=== PATIENT | male | born 1990 | race Caucasian/White ===

== ENCOUNTER 2018-04-22 16:48 | Emergency (ER) | payer SELFPAY | END 2018-04-22 18:39 | disposition home or self-care (01) | LOC: M ED 16:48 | DX: M54.41 Lumbago with sciatica, right side (principal); F17.210 Nicotine dependence, cigarettes, uncomplicated | CPT/HCPCS: 99283 ==

== ENCOUNTER 2018-07-01 15:00 | Emergency (ER) | payer SELFPAY ==
[2018-07-01] MEDS: PROPARACAINE 0.5% OPHTH SOL 15ML XX (15:57)
[2018-07-01] MEDS: ADACEL/BOOSTRIX VACCINE (DIPHTH/PERTUSS/ACELL/TETANUS)0.5ML SYR (90715) IM (16:21)
== END 2018-07-01 16:49 | disposition home or self-care (01) ==
LOC: M ED 15:00
DX: S05.01XA Injury of conjunctiva and corneal abrasion without foreign body, right eye, initial encounter (principal); X58.XXXA Exposure to other specified factors, initial encounter; Y92.89 Other specified places as the place of occurrence of the external cause; M54.9 Dorsalgia, unspecified; F17.210 Nicotine dependence, cigarettes, uncomplicated
CPT/HCPCS: 90715

== ENCOUNTER 2020-04-12 23:38 | Emergency (ER) | payer BC, SELFPAY ==
[~2020-04-12] VITALS: Ht 175.3 cm; Wt 93.6 kg
[~2020-04-12 23:38] MED LIST: CYCL-707 PO; IBUP-1022 PO; OCUF0.25 OD; ROBA500T PO
[2020-04-12] MEDS ORDERED: CYCL-707 (23:44)
[2020-04-12] MEDS ORDERED: METH4PACK (23:44)
[2020-04-13] MEDS ORDERED: KETOROLAC 60MG 2ML VIAL IM ONE (00:45)
[2020-04-13] MEDS ORDERED: GABAPENTIN 300 MG CAP PO ONE (00:45)
[2020-04-13] MEDS ORDERED: NEUR300C PO (01:23)
[2020-04-13 01:30] VITALS: BP 133/77
== END 2020-04-13 01:30 | disposition home or self-care (01) ==
LOC: M ED 23:38
DX: M54.42 Lumbago with sciatica, left side (principal); Z79.899 Other long term (current) drug therapy
CPT/HCPCS: 99283; J1885

== ENCOUNTER 2020-11-20 08:39 | Inpatient (IN) | payer BC ==
[~2020-11-20] VITALS: Ht 172.7 cm; Wt 88.2 kg
[~2020-11-20 08:39] MED LIST changes: +CYCL-707; +METH4PACK; +NEUR300C PO
--- OUTSIDE RECORDS SUMMARY | 2020-11-20 08:42 | CCD ---
Author Author [facility] Organization [facility] Address Unknown Phone Unavailable Care Team Providers Care Pipe Stem Aligner Name Role Phone MCELHERAN, SRINI PA Unavailable Unavailable MCELHERAN, SRINI PA Unavailable Unavailable MCELHERAN, SRINI PA Unavailable Unavailable MCELHERAN, SRINI PA Unavailable Unavailable MCELHERAN, SRINI PA Unavailable Unavailable MCELHERAN, SRINI PA Unavailable Unavailable MCELHERAN, SRINI PA Unavailable Unavailable MCELHERAN, SRINI PA Unavailable Unavailable MCELHERAN, SRINI PA Unavailable Unavailable MCELHERAN, SRINI PA Unavailable Unavailable MCELHERAN, SRINI PA Unavailable Unavailable MCELHERAN, SRINI PA Unavailable Unavailable MCELHERAN, SRINI PA Unavailable Unavailable MCELHERAN, SRINI PA Unavailable Unavailable MCELHERAN, SRINI PA Unavailable Unavailable MCELHERAN, SRINI PA Unavailable Unavailable MCELAN, SRINI PA Unavailable Unavailable MCELHERAN, SRINI PA Unavailable Unavailable MCELAN, SRINI PA Unavailable Unavailable MCELHERAN, SRINI PA Unavailable Unavailable MCELHERAN, SRINI PA Unavailable Unavailable MCELHERAN, SRINI PA Unavailable Unavailable MCELHERAN, SRINI PA Unavailable Unavailable MCELHERAN, SRINI PA Unavailable Unavailable MCELHERAN, SRINI PA Unavailable Unavailable MCELHERAN, SRINI PA Unavailable Unavailable MCELHERAN, SRINI PA Unavailable Unavailable MCELHERAN, SRINI PA Unavailable Unavailable Heath, L Erik MD Unavailable Unavailable Heath, L Erik MD Unavailable Unavailable Heath, L Erik MD Unavailable Unavailable Heath, L Erik MD Unavailable Unavailable Heath, L Erik MD Unavailable Unavailable Heath, L Erik MD Unavailable Unavailable Heath, L Erik MD Unavailable Unavailable Heath, L Erik MD Unavailable Unavailable Heath, L Erik MD Unavailable Unavailable Heath, L Erik MD Unavailable Unavailable Heath, L Erik MD Unavailable Unavailable Heath, L Erik MD Unavailable Unavailable Heath, L Erik MD Unavailable Unavailable Heath, L Erik MD Unavailable Unavailable Heath, L Erik MD Unavailable Unavailable Heath, L Erik MD Unavailable Unavailable Heath, L Erik MD Unavailable Unavailable Heath, L Erik MD Unavailable Unavailable Heath, L Erik MD Unavailable Unavailable Heath, L Erik MD Unavailable Unavailable Heath, L Erik MD Unavailable Unavailable Heath, L Erik MD Unavailable Unavailable Heath, L Erik MD Unavailable Unavailable Heath, L Erik MD Unavailable Unavailable Heath, L Erik MD Unavailable Unavailable Heath, L Erik MD Unavailable Unavailable Heath, L Erik MD Unavailable Unavailable Heath, L Erik MD Unavailable Unavailable Heath, L Erik MD Unavailable Unavailable Heath, L Erik MD Unavailable Unavailable Heath, L Erik MD Unavailable Unavailable Heath, L Erik MD Unavailable Unavailable Heath, L Erik MD Unavailable Unavailable Heath, L Erik MD Unavailable Unavailable Heath, L Erik MD Unavailable Unavailable Heath, L Erik MD Unavailable Unavailable Heath, L Erik MD Unavailable Unavailable Heath, L Erik MD Unavailable Unavailable Heath, L Erik MD Unavailable Unavailable Heath, L Erik MD Unavailable Unavailable Heath, L Erik MD Unavailable Unavailable Heath, L Erik MD Unavailable Unavailable Heath, L Erik MD Unavailable Unavailable Heath, L Erik MD Unavailable Unavailable Heath, L Erik MD Unavailable Unavailable Heath, L Erik MD Unavailable Unavailable Heath, L Erik MD Unavailable Unavailable Re-disclosure Warning The records that you are about to access may contain information from federally-assisted alcohol or drug abuse programs. If such information is present, then the following federally mandated warning applies: This information has been disclosed to you from records protected by federal confidentiality rules (42 CFR part 2). The federal rules prohibit you from making any further disclosure of this information unless further disclosure is expressly permitted by the written consent of the person to whom it pertains or as otherwise permitted by 42 CFR part 2. A general authorization for the release of medical or other information is NOT sufficient for this purpose. The Federal rules restrict any use of the information to criminally investigate or prosecute any alcohol or drug abuse patient.The records that you are about to access may contain highly sensitive health information, the redisclosure of which is protected by Article 27-F of the [facility] Public Health law. If you continue you may have access to information: Regarding HIV / AIDS; Provided by facilities licensed or operated by the [facility] Office of Mental Health; or Provided by the [facility] Office for People With Developmental Disabilities. If such information is present, then the following [facility] mandated warning applies: This information has been disclosed to you from confidential records which are protected by state law. State law prohibits you from making any further disclosure of this information without the specific written consent of the person to whom it pertains, or as otherwise permitted by law. Any unauthorized further disclosure in violation of state law may result in a fine or fci sentence or both. A general authorization for the release of medical or other information is NOT sufficient authorization for further disc losure. Encounters Encounter Providers Location Date Indications Data Source(s ) Outpatient Attender: Erik Heath MD Physical Therapy 05/13/2020 0 2:00:00 PM EDT [facility] ([facility] ) Outpatient Attender: SRINI PEREZ Physical Therapy 04/27/2020 02:30:00 PM EDT [facility] ([facility] ) Medications Medication Brand Name Start Date Product Form Dose Route Admi nistrative Instructions Pharmacy Instructions Status Indications Reaction Description Data Source(s) gabapentin 300 MG Oral Capsule Gabapentin 05/13/2020 12:00:00 AM EDT ORAL active [facility] ([facility]) No Active Medications 05/13/2020 12:00:00 AM EDT completed [facility] ([facility] ) 875-125 mg 09/20/2019 12:00:00 AM EST tablet 20 TAKE ONE TABLET BY MOUTH TWICE A DAY FOR 10 DAYS TAKE ONE TABLET BY MOUTH TWICE A DAY FOR 10 DAYS SOLD: 09/20/2019 [facility] Insurance Providers Payer name Policy type / Coverage type Policy ID Covered republican ID Covered republican's relationship to ansari Policy Ansari Plan Information [employer] [place] P[place]/307 [id number] SP [id number] [employer] [place]/307 [id number] SP [id number] SELF PAY ONLY [id number] SP [id number] SELF PAY UNAVAILABLE SP UNAVAILA BLE MEDICAID [id number] SP [id number] Surgeries/Procedures Procedure Description Date Indications Data Source(s) THERAPEUTIC PX 1/> AREAS EACH 15 MIN EXERCISES 12:00:00 AM EDT [facility] ([facility] ) MANUAL THERAPY TQS 1/> REGIONS EACH 15 MINUTES 12:00:00 AM EDT [facility] ([facility] ) THERAPEUTIC PX 1/> AREAS EACH 15 MIN EXERCISES 12:00:00 AM EDT [facility] ([facility] ) MANUAL THERAPY TQS 1/> REGIONS EACH 15 MINUTES 12:00:00 AM EDT [facility] ([facility] ) THERAPEUTIC PX 1/> AREAS EACH 15 MIN EXERCISES 12:00:00 AM EDT [facility] ([facility] ) MANUAL THERAPY TQS 1/> REGIONS EACH 15 MINUTES 12:00:00 AM EDT [facility] ([facility] ) Physical Therapy Eval - Low Complexity 05/11/2020 12:0 0:00 AM EDT [facility] ([facility] ) X-Ray Spine Lumbosacral Complete Inc Bending Views Min Of 6 04/27/2020 12:00:00 AM EDT [facility] ([facility] ) Vital Signs ID Date Data Source UNK Name Value Range Interpretation Code Description Data Source(s) Body mass index (BMI) [Ratio] 29.6 kg/m2 29.6 k g/m2 [facility] ([facility] ) Body weight 206.00 [lb_av] 206.00 [lb_av] [facility] T ([facility] ) Body height 70 [in_i] 70 [in_i] [facility] ([facility] ) 5'10" Body mass index (BMI) [Ratio] 29.6 kg/m2 29.6 k g/m2 [facility] ([facility] ) Body weight 206.00 [lb_av] 206.00 [lb_av] [facility] T ([facility] ) Body height 70 [in_i] 70 [in_i] [facility] ([facility] ) 5'10" Body temperature 96.8 [degF] 96.8 [degF] [facility] ([facility] )
[2020-11-20] MEDS ORDERED: IBUP200C90 PO (08:50)
--- OUTSIDE RECORDS SUMMARY | 2020-11-20 09:28 | CCD ---
Author Author [facility] Organization [facility] Address Unknown Phone Unavailable Care Team Providers Care Fish Conservationist Name Role Phone MCELHERAN, SRINI PA Unavailable [...] Unavailable Unavailable MCELHERAN, SRINI PA Unavailable Unavailable Sobeida Heath MD Unavailable Unavailable Heath, L Erik MD [...] Unavailable Heath, L Erik MD Unavailable Unavailable Haeth, L Erik MD Unavailable Unavailable Heath, L [...] is protected by Article 27-F of the [facility] Public Health law. If you continue you may have access to information: Regarding HIV / AIDS; Provided by facilities licensed or operated by the [facility] Office of Mental Health; or Provided by the [facility] Office for People With Developmental Disabilities. If such information is present, then the following [facility] mandated warning applies: This information has been [...] law may result in a fine or assisted sentence or both. A general authorization for the release of medical or other information is NOT sufficient authorization for further disc losure. Encounters Encounter Providers Location Date Indications Data Source(s ) Outpatient Attender: Erik Heath MD Physical Therapy 05/13/2020 0 2:00:00 PM EDT [facility] ([facility] ) Outpatient Attender: SRINI PEREZ Physical Therapy 04/27/2020 02:30:00 PM EDT [facility] ([facility]) Medications Medication Brand Name Start Date Product Form Dose Route Admi nistrative Instructions Pharmacy Instructions Status Indications Reaction Description Data Source(s) gabapentin 300 MG Oral Capsule Gabapentin 05/13/2020 12:00:00 AM EDT ORAL active [facility] ([facility]) No Active Medications 05/13/2020 12:00:00 AM EDT completed [facility] ([facility] ) 875-125 mg 09/20/2019 12:00:00 AM EST tablet 20 TAKE ONE TABLET BY MOUTH TWICE A DAY FOR 10 DAYS TAKE ONE TABLET BY MOUTH TWICE A DAY FOR 10 DAYS SOLD: 09/20/2019 [facility] Insurance Providers Payer name Policy type / Coverage type Policy ID Covered libertarian ID Covered libertarian's relationship to ansari Policy Ansari Plan Information [employer] [place] P[place]/307 [id number] SP [id number] [employer] [place] P[place] 302/307 [id number] SP [id number] SELF PAY ONLY [id number] SP [id number] SELF PAY UNAVAILABLE SP UNAVAILA BLE MEDICAID [id number] SP [id number] Surgeries/Procedures Procedure Description Date Indications Data Source(s) THERAPEUTIC PX 1/> AREAS EACH 15 MIN EXERCISES 12:00:00 AM EDT [facility] ([facility] ) MANUAL THERAPY TQS 1/> REGIONS EACH 15 MINUTES 12:00:00 AM EDT [facility] ([facility] ) THERAPEUTIC PX 1/> AREAS EACH 15 MIN EXERCISES 12:00:00 AM EDT [facility] ([facility] ) MANUAL THERAPY TQS 1/> REGIONS EACH 15 MINUTES 12:00:00 AM EDT [facility] ([facility] ) THERAPEUTIC PX 1/> AREAS EACH 15 MIN EXERCISES 12:00:00 AM EDT [facility] ([facility] ) MANUAL THERAPY TQS 1/> REGIONS EACH 15 MINUTES 12:00:00 AM EDT [facility] ([facility] ) Physical Therapy Eval - Low Complexity 05/11/2020 12:0 0:00 AM EDT [facility] ([facility] ) X-Ray Spine Lumbosacral Complete Inc Bending Views Min Of 6 04/27/2020 12:00:00 AM EDT [facility] ([facility] ) Vital Signs ID Date Data Source UNK Name Value Range Interpretation Code Description Data Source(s) Body mass index (BMI) [Ratio] 29.6 kg/m2 29.6 k g/m2 [facility] ([facility] ) Body weight 206.00 [lb_av] 206.00 [lb_av] [facility] T ([facility] ) Body height 70 [in_i] 70 [in_i] [facility] ([facility] ) 5'10" Body mass index (BMI) [Ratio] 29.6 kg/m2 29.6 k g/m2 [facility] ([facility] ) Body weight 206.00 [lb_av] 206.00 [lb_av] [facility] T ([facility] ) Body height 70 [in_i] 70 [in_i] [facility] ([facility] ) 5'10" Body temperature 96.8 [degF] 96.8 [degF] [facility] ([facility] )
[2020-11-20] MEDS ORDERED: KETOROLAC 30 MG/ML 1ML VIAL IV ONE (09:30)
[2020-11-20] MEDS ORDERED: CYCLOBENZAPRINE 5MG TABLET PO ONE (09:30)
[2020-11-20] MEDS ORDERED: NORCO, ANEXSIA 5/325MG TABLET (HYDROcodone/ACETAMINOPHEN) PO ONE (10:45)
[2020-11-20] MEDS ORDERED: CYCL5TAB PO (11:36)
[2020-11-20] MEDS ORDERED: HYDR-4517 PO (11:36)
[2020-11-20] MEDS ORDERED: MORPHINE 2 MG/ML 1ML VIAL (J2270) SC ONE (12:45)
--- NOTE | 2020-11-20 13:09 | REP ---
INDICATION: radicular pain. COMPARISON: Comparison MRI lumbar spine study 09 May 2020. This prior study showed a left-sided disc protrusion at L5-S1.. TECHNIQUE: Helical scanning is acquired and 4 mm axial images are re-formatted. Coronal and sagittal MPR images are provided. FINDINGS: There is straightening of the normal lumbar lordosis. Lumbar vertebral body heights are preserved. Alignment is normal. There is a Schmorl's node at the superior endplate of L3 on the left unchanged from the comparison MRI study. There is degenerative narrowing of the L5-S1 disc also unchanged. Disc spaces are otherwise preserved. No malalignment is seen. There is no evidence of spondylolysis or spondylolisthesis. There is evidence of a moderate to large sized left paracentral focal disc protrusion at L5-S1 producing thecal sac compression. This appears more prominent than on the MR study from May 09, 2020. There is evidence of compression of the left S1 nerve root. As seen previously, there is caudal extension of the disc protrusion. There is mild facet hypertrophy bilaterally at L5-S1. No bony foraminal encroachment. At L4-5, there is no evidence of disc protrusion. No spinal stenosis or foraminal narrowing is seen. The L3-4 and L2-3 and L1-2 discs remain unremarkable. IMPRESSION: There is evidence of a fairly large left posterior paracentral disc protrusion at L5-S1 with thecal sac compression. This appears to be larger than it was at the time of the MR study from May 09, 2020. <Electronically signed by Alfredo Pickett > 11/20/20 [id number]
[2020-11-20] MEDS ORDERED: dexameTHASONE 20MG/5ML VIAL (J1100 PER 1MG) IV ONE (13:30)
[2020-11-20 14:04] LABS: BASO % 0.5 % (0.0-1.0); EOS # 0.2 10^3/uL (0.0-0.5); EOS % 2.7 % (0.0-3.0); HEMATOCRIT 45.8 % (42.0-52.0); HEMOGLOBIN 15.1 g/dl (13.5-17.5); LYMPH # 2.9 10^3/uL (1.5-5.0); LYMPH % 37.8 % (24.0-44.0); MEAN CORPUSCULAR HEMOGLOBIN 28.2 pg (27.0-33.0); MEAN CORPUSCULAR VOLUME 85.6 fl (80.0-96.0); MONO # 0.7 10^3/uL (0.0-0.8); MONO % 8.6 % (0.0-5.0); NEUTROPHILS # 3.9 10^3/uL (1.5-8.5); NEUTROPHILS % 50.3 % (36.0-66.0); PLATELET COUNT, AUTOMATED 326 10^3/uL (150-450); RED BLOOD COUNT 5.35 10^6/uL (4.30-6.10); WHITE BLOOD COUNT 7.8 10^3/uL (4.0-10.0)
[2020-11-20 14:26] LABS: ALBUMIN 3.8 GM/DL (3.2-5.2); ALT/SGPT 36 U/L (12-78); BILIRUBIN,TOTAL 0.4 MG/DL (0.2-1.0); BLOOD UREA NITROGEN 10 MG/DL (7-18); CALCIUM LEVEL 9.2 MG/DL (8.5-10.1); CARBON DIOXIDE LEVEL 28 MEQ/L (21-32); CHLORIDE LEVEL 108 MEQ/L (98-107); CREATININE FOR GFR 0.82 MG/DL (0.70-1.30); GLOMERULAR FILTRATION RATE > 60.0 (>60); GLUCOSE, FASTING 85 MG/DL (70-100); MAGNESIUM LEVEL 2.2 MG/DL (1.8-2.4); SODIUM LEVEL 140 MEQ/L (136-145); TOTAL PROTEIN 7.1 GM/DL (6.4-8.2)
[2020-11-20] MEDS ORDERED: MOM 30ML SUSPENSION UDC PO PRN (14:30)
[2020-11-20] MEDS ORDERED: ACETAMINOPHEN TAB 650MG DOSE (2X325MG) PO PRN (14:30)
[2020-11-20] MEDS ORDERED: IBUP-1720 PO (14:32)
[2020-11-20 14:33] LABS: RSV AMPLIFICATION NEGATIVE (NEGATIVE)
--- OUTSIDE RECORDS SUMMARY | 2020-11-20 14:37 | CCD ---
Author Author [facility] Organization [facility] Address Unknown Phone Unavailable Care Team Providers Care Administrative Support Assoc Name Role Phone MCELHERAN, SRINI PA Unavailable [...] is protected by Article 27-F of the [facility] Public Health law. If you continue you may have access to information: Regarding HIV / AIDS; Provided by facilities licensed or operated by the [facility] Office of Mental Health; or Provided by the [facility] Office for People With Developmental Disabilities. If such information is present, then the following [facility] mandated warning applies: This information has been [...] law may result in a fine or chcf sentence or both. A general authorization for the release of medical or other information is NOT sufficient authorization for further disc losure. Encounters Encounter Providers Location Date Indications Data Source(s ) Outpatient Attender: Erik Heath MD Physical Therapy 05/13/2020 0 2:00:00 PM EDT [facility] ([facility] ) Outpatient Attender: SRINI PEREZ Physical Therapy 04/27/2020 02:30:00 PM EDT [facility] ([facility] ) Medications Medication Brand Name Start Date Product Form Dose Route Admi nistrative Instructions Pharmacy Instructions Status Indications Reaction Description Data Source(s) gabapentin 300 MG Oral Capsule Gabapentin 05/13/2020 12:00:00 AM EDT ORAL active [facility] ([facility]) No Active Medications 05/13/2020 12:00:00 AM EDT completed [facility] ([facility] ) 875-125 mg 09/20/2019 12:00:00 AM EST tablet 20 TAKE ONE TABLET BY MOUTH TWICE A DAY FOR 10 DAYS TAKE ONE TABLET BY MOUTH TWICE A DAY FOR 10 DAYS SOLD: 09/20/2019 [facility] Insurance Providers Payer name Policy type / Coverage type Policy ID Covered alliance party ID Covered alliance party's relationship to ansari Policy Ansari Plan Information [facility] [facility] [place] [id number] SP [id number] [employer] [place] PPO 302/307 [id number] SP [id number] [employer] PPO 302/307 [id number] SP [id number] [place] PPO 302/307 [id number] SP [id number] SELF PAY ONLY [id number] SP [id number] SELF PAY UNAVAILABLE SP UNAVAILA BLE MEDICAID [id number] SP [id number] Surgeries/Procedures Procedure Description Date Indications Data Source(s) THERAPEUTIC PX 1/> AREAS EACH 15 MIN EXERCISES 12:00:00 AM EDT [facility] ([facility] ) MANUAL THERAPY TQS 1/> REGIONS EACH 15 MINUTES 12:00:00 AM EDT [facility] ([facility] ) THERAPEUTIC PX 1/> AREAS EACH 15 MIN EXERCISES 12:00:00 AM EDT [facility] ([facility] ) MANUAL THERAPY TQS 1/> REGIONS EACH 15 MINUTES 12:00:00 AM EDT [facility] ([facility] ) THERAPEUTIC PX 1/> AREAS EACH 15 MIN EXERCISES 12:00:00 AM EDT [facility] ([facility] ) MANUAL THERAPY TQS 1/> REGIONS EACH 15 MINUTES 12:00:00 AM EDT [facility] ([facility] ) Physical Therapy Eval - Low Complexity 05/11/2020 12:0 0:00 AM EDT [facility] ([facility] ) X-Ray Spine Lumbosacral Complete Inc Bending Views Min Of 6 04/27/2020 12:00:00 AM EDT [facility] ([facility] ) Vital Signs ID Date Data Source UNK Name Value Range Interpretation Code Description Data Source(s) Body mass index (BMI) [Ratio] 29.6 kg/m2 29.6 k g/m2 [facility] ([facility] ) Body weight 206.00 [lb_av] 206.00 [lb_av] [facility] T ([facility] ) Body height 70 [in_i] 70 [in_i] [facility] ([facility] ) 5'10" Body mass index (BMI) [Ratio] 29.6 kg/m2 29.6 k g/m2 [facility] ([facility] ) Body weight 206.00 [lb_av] 206.00 [lb_av] CAT Morales ([facility] ) Body height 70 [in_i] 70 [in_i] [facility] ([facility] ) 5'10" Body temperature 96.8 [degF] 96.8 [degF] [facility] ([facility] )
--- NOTE | 2020-11-20 15:13 | HPEPDOC ---
[facility] Medical History & Physical Date of Admission Nov 20, 2020 Date of Service: Nov 20, 2020 History and Physical Chief complaint: Who presented to the ER with back pain History of present illness: Patient is a 30-year-old male who presented to the hospital with compl aints of lower back pain. Notes that the pain started about 2 days ago. He denies any recent history of overexertion or trauma. Patient reports the pain is occurring in his lower back radiating down his left leg. Patient denies any weakness of his legs or any loss of sensation. Reports the pain as a 10/10, unchanged with any medications received in the ER. Patient denies any alleviating or aggravating factors. Patient denies any loss of control of his bowel or bladder Patient denies any chest pain, shortness of breath, palpitations, nausea, vomiting, abdominal pain, diarrhea, or urinary discomfort. Past Medical History: Chronic back pain / Sciatica 2/2 herniated disks Past Surgical History: Colonoscopy Allergies: See below Medications: See below Family History: - No history of malignancies Social History: - Denies the use of illicit drugs; Social EtoH use; Smoker for 12 years at 2 ppd - Denies recent travel or sick contacts - Lives with mother / father - Occupation; [employer] Review of Systems: 10 point review of systems complete, all negative otherwise stated in HPI Physical exam: - Vitals: BP [132/65], HR [64], RR [16], Sat [99%RA], Temp [97.8F] - General: Lying in bed, Reporting back pain, Speaking in full sentences, AAOx3 - HEENT: NC, AT, PERRLA - CVS: RRR, +S1S2 - Lungs: Fair air entry bilaterally, No appreciable wheezing / rales / rhonchi - Abdomen: Soft, Non-distended, Non-tender - Extremities: No lower extremity edema, No calf tenderness - Neuro: 5/5 strength at upper / lower extremities bilaterally, no sensory deficits noted - Skin: No visible rashes Labs: See below Imaging: CT L spine 11/20: There is evidence of a fairly large left posterior paracentral disc protrusion at L5-S1 with thecal sac compression. This appears to be larger than it was at the time of the MR study from May 09, 2020. EKG: See below Assessment and Plan: Acute on Chronic back pain - likely 2/2 sciatica 2/2 herniated disks - Patient presented to the ER with back pain for 2 days - progressive - No loss of control of bowel / bladder - Physical without any focal neurologic deficits - Labs noted - Imaging noted above - Will get MRI - Will control pain with Morphine - Will consult Orthopedic surgery DVT prophylaxis - Will start TEDs/Sequentials Vital Signs Vital Signs Date Time Temp Pulse Resp B/P (MAP) Pulse Ox O2 Delivery O2 Flow Rate FiO2 11/20/20 13:13 18 Room Air 11/20/20 12:50 98 11/20/20 11:19 84 132/78 11/20/20 10:23 98.7 Laboratory Data Labs 24H Laboratory Tests 2 11/20/20 13:47: Coronavirus (COVID-19)(PCR) NEGATIVE, Influenza Type A (RT-PCR) NEGATIVE, Influenza Type B (RT-PCR) NEGATIVE, Respiratory Syncytial Virus (PCR) NEGATIVE 11/20/20 13:52: Immature Granulocyte % (Auto) 0.1, Neutrophils (%) (Auto) 50.3, Lymphocytes (%) (Auto) 37.8, Monocytes (%) (Auto) 8.6H, Eosinophils (%) (Auto) 2.7, Basophils (%) (Auto) 0.5, Neutrophils # (Auto) 3.9, Lymphocytes # (Auto) 2.9, Monocytes # (Auto) 0.7, Eosinophils # (Auto) 0.2, Basophils # (Auto) 0.0, Nucleated Red Blood Cells % (auto) 0.0, Anion Gap 4L, Glomerular Filtration Rate > 60.0, Calcium Level 9.2, Magnesium Level 2.2, Total Bilirubin 0.4, Aspartate Amino Transf (AST/SGOT) 20, Alanine Aminotransferase (ALT/SGPT) 36, Alkaline Phosphatase 61, Total Protein 7.1, Albumin 3.8, Albumin/Globulin Ratio 1.2 CBC/BMP Laboratory Tests 11/20/20 13:52 Home Medications Scheduled PRN Cyclobenzaprine HCl (Cyclobenzaprine HCl) 5 Mg Tablet, 5 MG PO TID PRN for BACK PAIN Hydrocodone/Acetaminophen (Hydrocodone-Acetamin 10-325 mg) 1 Each Tablet, 1 TAB PO QIDP PRN for pain Ibuprofen (Ibuprofen) 200 Mg Tablet, 600 MG PO QID PRN for PAIN Allergies Coded Allergies: No Known Allergies (Unverified , 04/12/20) KELLI SINGH MD Nov 20, 2020 15:13
[2020-11-20] MEDS: MORPHINE 4 MG/ML 1ML VIAL/SYRINGE (J2270) IV PRN ×2 (17:12→21:15)
--- NOTE | 2020-11-20 17:27 | REPVR ---
PROCEDURE INFORMATION: Exam: MR Lumbar Spine Without and With Contrast. Exam date and time: 11/20/2020 4:21 PM Age: 30 years old Clinical indication: Low back pain and sciatica; Bilateral TECHNIQUE: Imaging protocol: Multiplanar magnetic resonance images of the lumbar spine without and with intravenous contrast. Contrast material: PROHANCE; Contrast volume: 17 ml; Contrast route: INTRAVENOUS (IV); COMPARISON: CT Spine, lumbar w/o contrast 11/20/2020 12:43 PM FINDINGS: Vertebrae: There is no fracture. Vertebral bodies maintain their height and alignment. Stir images demonstrate no evidence of bone marrow edema or marrow infiltrating lesion. Spinal cord: The lower thoracic spinal cord, conus and cauda equina are normal. No compression. L1-L2: No significant disc disease. No significant spinal canal stenosis. No neural foraminal stenosis. L2-L3: No significant disc disease. No significant spinal canal stenosis. No neural foraminal stenosis. L3-L4: No significant disc disease. No significant spinal canal stenosis. No neural foraminal stenosis. L4-L5: No significant disc disease. No significant spinal canal stenosis. No neural foraminal stenosis. L5-S1: Disc dehydration. There is a central to left paracentral disc extrusion. The disc extrudes inferiorly relative to the disc space . The anterior to posterior dimension of the extruded disc is 11 mm. Transverse diameter across the base of the herniated disc is 12 mm. The disc extrudes 13 mm inferior relative to the disc space. The disc compresses the thecal sac particularly to the left of midline. There is compression of the descending left S1 nerve root. There is enhancement peripheral to the extruded disc. Soft tissues: No paraspinous or intraspinal mass, hemorrhage or fluid collection. IMPRESSION: Large central to left paracentral L5-S1 disc extrusion compressing the thecal sac to the left of midline and markedly compressing the descending left S1 nerve root Electronically signed by: Elmo Bennett On 11/20/2020 17:26:39 PM
[2020-11-20] MEDS: DOCUSATE SODIUM 100MG CAPSULE PO SCH (21:00)
[2020-11-20 22:00] VITALS: BP 134/76
[2020-11-21 06:00] VITALS: BP 119/72
[2020-11-21] MEDS: MORPHINE 4 MG/ML 1ML VIAL/SYRINGE (J2270) IV PRN ×2 (06:18→12:44)
[2020-11-21 06:43] LABS: BASO % 0.1 % (0.0-1.0); EOS # 0.1 10^3/uL (0.0-0.5); EOS % 0.6 % (0.0-3.0); HEMATOCRIT 45.9 % (42.0-52.0); HEMOGLOBIN 15.2 g/dl (13.5-17.5); LYMPH # 3.2 10^3/uL (1.5-5.0); LYMPH % 31.1 % (24.0-44.0); MEAN CORPUSCULAR HEMOGLOBIN 28.7 pg (27.0-33.0); MEAN CORPUSCULAR HGB CONC 33.1 g/dl (32.0-36.5); MEAN CORPUSCULAR VOLUME 86.6 fl (80.0-96.0); MONO # 0.8 10^3/uL (0.0-0.8); MONO % 7.9 % (0.0-5.0); NEUTROPHILS # 6.2 10^3/uL (1.5-8.5); PLATELET COUNT, AUTOMATED 342 10^3/uL (150-450); WHITE BLOOD COUNT 10.4 10^3/uL (4.0-10.0)
[2020-11-21] MEDS ORDERED: GABAPENTIN 100 MG CAP PO ONE (07:00)
[2020-11-21 07:02] LABS: BLOOD UREA NITROGEN 13 MG/DL (7-18); CALCIUM LEVEL 9.4 MG/DL (8.5-10.1); CARBON DIOXIDE LEVEL 23 MEQ/L (21-32); CHLORIDE LEVEL 109 MEQ/L (98-107); CREATININE FOR GFR 0.79 MG/DL (0.70-1.30); GLOMERULAR FILTRATION RATE > 60.0 (>60); GLUCOSE, FASTING 94 MG/DL (70-100); MAGNESIUM LEVEL 2.2 MG/DL (1.8-2.4); POTASSIUM SERUM 4.3 MEQ/L (3.5-5.1); SODIUM LEVEL 140 MEQ/L (136-145)
[2020-11-21] MEDS ORDERED: KETOROLAC 30 MG/ML 1ML VIAL IV PRN (07:15)
[2020-11-21] MEDS ORDERED: PILL CUTTER 1 EACH XX PRN (07:30)
[2020-11-21] MEDS: GABAPENTIN 300 MG CAP PO SCH ×2 (09:00→22:05)
[2020-11-21] MEDS: DICLOFENAC EPOLAMINE 1.3 % PATCH TOP SCH ×2 (09:01→22:06)
[2020-11-21] MEDS: NICOTINE 21MG/24HR 1 EA TRANSDERMAL TD SCH (09:01)
[2020-11-21] MEDS: tiZANidine 4 MG TAB PO PRN (09:01)
[2020-11-21] MEDS: DOCUSATE SODIUM 100MG CAPSULE PO SCH ×2 (09:02→22:05)
[2020-11-21] MEDS: dexameTHASONE 4 MG/ML 1ML VIAL (J1100 PER 1MG) IV SCH (09:02)
[2020-11-21] MEDS ORDERED: NORCO, ANEXSIA 5/325MG TABLET (HYDROcodone/ACETAMINOPHEN) PO PRN (10:30)
--- NOTE | 2020-11-21 10:39 | IPNPDOC ---
Text Note Date of Service The patient was seen on 11/21/20. NOTE Subjective: still complains of excruciating pain in tessy left lower back and left back of the thing going down to the ankle. Physical exam: - Vitals: As below - General: Lying in bed, Reporting back pain, Speaking in full sentences, AAOx3 - HEENT: NC, AT, PERRLA - CVS: RRR, +S1S2 - Lungs: Fair air entry bilaterally, No appreciable wheezing / rales / rhonchi - Abdomen: Soft, Non-distended, Non-tender - Extremities: No lower extremity edema, No calf tenderness - Neuro: 5/5 strength at upper / lower extremities bilaterally, no sensory deficits noted - Skin: No visible rashes Imaging: CT L spine 11/20: There is evidence of a fairly large left posterior paracentral disc protrusion at L5-S1 with thecal sac compression. This appears to be larger than it was at the time of the MR study from May 09, 2020. MRI lumber spine IMPRESSION: Large central to left paracentral L5-S1 disc extrusion compressing the thecal sac to the left of midline and markedly compressing the descending left S1 nerve root Assessment and Plan: Patient is a 30-year-old male who presented to the hospital with complaints of lower back pain. Notes that the pain started about 2 days ago. He denies any recent history of overexertion or trauma. Patient reports the pain is occurring in his lower back radiating down his left leg. Patient denies any weakness of his legs or any loss of sensation. Reports the pain as a 10/10, unchanged with any medications received in the ER. Patient denies any alleviating or aggravating factors. Acute on Chronic back pain Acute lumbosacral radiculopathy S1 nerve root compression by large prolapsed disc in the left. Toradol, dexamethasone, gabapentin, tizanidine, [place] and morphine Spoke with Dr Heath. Norma was to be scheduled for surgery in May 2020 , But he had 3 no shows he was called and letter sent . He did not respond. He com pared the MRi in their office from last year with the one from yesterday and he says it looks the same. He suggested pain control , pain consult , PT/OT. He needs to follow up in the office with Dr Heath and reassessment abut surgery. 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 They cannot do epidural inje ctions as inpatient. She suggested increasing gabapentin and may also benefit from a medrol taper on discharge. They can see him as an outpatient and set up epidural injection if needed. DVT prophylaxis TEDs/Sequentials VS,Fishbone, I+O VS, Fishbone, I+O Laboratory Tests 11/20/20 13:52 11/21/20 06:16 Vital Signs Date Time Temp Pulse Resp B/P (MAP) Pulse Ox O2 Delivery O2 Flow Rate FiO2 11/21/20 06:42 18 11/21/20 06:00 97.9 79 119/72 (88) 98 Room Air I&O- Last 24 Hours up to 6 AM 11/21/20 06:00 Intake Total 780 ml Output Total 0 ml Balance 780 ml YUDITH ZAMARRIPA MD Nov 21, 2020 10:39
[2020-11-21] MEDS: NORCO, ANEXSIA 5/325MG TABLET (HYDROcodone/ACETAMINOPHEN) PO PRN ×2 (11:02→17:17)
[2020-11-21] MEDS: PANTOPRAZOLE 40MG TAB (PROTONIX) PO SCH (11:10)
--- NOTE | 2020-11-21 11:14 | CR ---
ER CONSULTATION DATE: 11/20/2020 TIME: 6 p.m. CONSULTATING SERVICE: Orthopedic Surgery. CONSULTING PHYSICIAN: Chris Lee M.D. HISTORY OF PRESENT ILLNESS: This is a 30-year-old male who presented to the hospital with low back pain and a diagnosis of L5-S1 paracentral disc herniation. Patient reports that the pain started two days prior. His pain is acute on chronic. He has had a history of L5-S1 radicular pain in the past. Patient denies any weakness of his legs or any loss of sensation, however. He was a previous patient of Dr. Heath at [facility]. Orthopedic Surgery was consulted for rule out of cauda equina. PAST MEDICAL HISTORY: Chronic back pain and sciatica secondary to a herniated disc, left posterior paracentral L5-S1 disc herniation. PAST SURGICAL HISTORY: Colonoscopy. ALLERGIES: Please see the Hospitalist note. MEDICATIONS: Please see the Hospitalist note. FAMILY HISTORY: No history of malignancies. SOCIAL HISTORY: Non-IV drug user, social alcohol user, smoker for 12 years, two packs per day. Denies recent travel or sick contacts. He lives with his mother and father. Occupation is [employer]. REVIEW OF SYSTEMS: A 14 point review of systems was negative unless described in the HPI above. PHYSICAL EXAMINATION: Alert to person, time and place. Patient had radicular S1 pain which is exacerbated with sitting but improved with standing. Symptoms worsens with coughing, Valsalva or sneezing. Patient did not have any cauda equina symptoms to include bilateral leg pain, lower extremity weakness, saddle anesthesia or bowel or bladder symptoms. The patient's left lumbar neuro exam: L1-L3: No loss to the anterior thigh, 5/5 hip flexor strength. No loss of reflex. L3-4: No sensory loss to medial calf, 5/5 quadriceps, tibialis anterior strength, intact knee jerk. L4-L5: No sensory loss to lateral calf or dorsal foot, 5/5 EDL and EHL muscular strength. No reflex loss. L5-S1: Patient did notice sensory loss to the posterior calf and plantar foot and had mild loss of strength to include a 4/5 strength of the gastrocnemius, soleus musculature. His ankle jerk was still intact. S2-4: Patient had no sensory loss to the perianal region and he had complete control of his bowel and bladder. His cremasteric reflexes were not tested. The patient's left lower extremity was otherwise neurovascularly intact. He did have 5/5 motor strength to the EHL, 4/5 strength to the FHL, 5/5 strength of the tibialis anterior, 4/5 strength of the gastroc-soleus complex, 5/5 strength of the peroneal complex, he had a 2+ dorsalis pedis and posterior tibial arterial pulses. No deformities about the left leg or back. RADIOGRAPHS: None taken at this point/pending. He had a lumbar CT scan which demonstrated a large left posterior paracentral disc protrusion at L5-S1 with minimal thecal sac compression. This appears larger than it was at the time of MR study from May 09, 2020. IMPRESSION: A 30-year-old male with left paracentral disc herniation at L5-S1 contributing to his S1 radiculopathy. PLAN: At this point in time given there is significant evidence against any type of cauda equina symptoms in this patient, the patient however does have left sided S1 radicular symptoms secondary to L5-S1 paracentral left sided disc herniation. The patient's pain will be controlled by the Hospitalist here on admission and the patient will undergo Physical Therapy for gait ambulation. Patient will follow-up with [facility], Dr. Heath, early next week for discussion on further interventions to treat the patient's aforementioned diagnosis. The patient otherwise is in good spirits and agreed with the plan.
[2020-11-21 14:00] VITALS: BP 117/58
[2020-11-21] MEDS: KETOROLAC 30 MG/ML 1ML VIAL IV SCH ×2 (15:51→22:07)
[2020-11-21] MEDS ORDERED: GABAPENTIN 100 MG CAP PO SCH (16:00)
[2020-11-21 22:03] VITALS: BP 136/70
[2020-11-22] MEDS: KETOROLAC 30 MG/ML 1ML VIAL IV SCH ×4 (02:57→20:34)
[2020-11-22 06:12] LABS: BASO % 0.3 % (0.0-1.0); EOS # 0.1 10^3/uL (0.0-0.5); EOS % 1.3 % (0.0-3.0); HEMOGLOBIN 14.3 g/dl (13.5-17.5); LYMPH # 3.8 10^3/uL (1.5-5.0); MEAN CORPUSCULAR HEMOGLOBIN 28.3 pg (27.0-33.0); MEAN CORPUSCULAR HGB CONC 32.5 g/dl (32.0-36.5); MONO % 10.5 % (0.0-5.0); NEUTROPHILS # 4.3 10^3/uL (1.5-8.5); NEUTROPHILS % 46.8 % (36.0-66.0); PLATELET COUNT, AUTOMATED 313 10^3/uL (150-450); RED BLOOD COUNT 5.06 10^6/uL (4.30-6.10); WHITE BLOOD COUNT 9.3 10^3/uL (4.0-10.0)
[2020-11-22 06:19] VITALS: BP 141/88
[2020-11-22 06:30] LABS: BLOOD UREA NITROGEN 16 MG/DL (7-18); CALCIUM LEVEL 8.7 MG/DL (8.5-10.1); CARBON DIOXIDE LEVEL 28 MEQ/L (21-32); CHLORIDE LEVEL 110 MEQ/L (98-107); CREATININE FOR GFR 0.79 MG/DL (0.70-1.30); GLOMERULAR FILTRATION RATE > 60.0 (>60); GLUCOSE, FASTING 88 MG/DL (70-100); MAGNESIUM LEVEL 1.9 MG/DL (1.8-2.4); SODIUM LEVEL 142 MEQ/L (136-145)
[2020-11-22] MEDS: PANTOPRAZOLE 40MG TAB (PROTONIX) PO SCH (08:34)
[2020-11-22] MEDS: GABAPENTIN 300 MG CAP PO SCH ×2 (08:34→20:34)
[2020-11-22] MEDS: dexameTHASONE 4 MG/ML 1ML VIAL (J1100 PER 1MG) IV SCH (08:34)
[2020-11-22] MEDS: NICOTINE 21MG/24HR 1 EA TRANSDERMAL TD SCH (08:34)
[2020-11-22] MEDS: DICLOFENAC EPOLAMINE 1.3 % PATCH TOP SCH ×2 (08:34→20:35)
[2020-11-22] MEDS: DOCUSATE SODIUM 100MG CAPSULE PO SCH ×2 (08:34→20:34)
--- NOTE | 2020-11-22 09:48 | IPN ---
PROGRESS NOTE DATE: 11/22/2020 SUBJECTIVE: Desmond was seen in [address]. He was sleeping when I went in the room. He woke up enough to be examined but he was very lethargic and fell back to sleep immediately. It did not look like he was feeling any significant pain at that time. PHYSICAL EXAMINATION: Vital signs stable. Lungs clear. Abdomen soft, nontender. Moves arms and legs with equal strength. Low back is nontender to palpate. IMPRESSION: This is [id number] back pain with acute lumbosacral radiculopathy, S1 nerve root compression by large prolapsed disk on the left. PLAN: The patient is currently on dexamethasone, Toradol, gabapentin, tizanidine, [place] and morphine. Dr. Heath has an intermittent history with the patient with has been problematic due to noncompliance. Spoke with Karyn from our orthopedic group. Dr. Heath is available tomorrow and we will wait for him to see the patient in consultation in the hospital.
--- NOTE | 2020-11-22 09:48 | CR ---
CONSULTATION DATE: 11/21/2020 CONSULTING SERVICE: Orthopedic Surgery CHIEF COMPLAINT: Low back pain radiating into the left lower extremity. HISTORY OF PRESENT ILLNESS: The patient is a 30-year-old male presenting to clinic with low back pain with left lower extremity radiculopathy. He has a diagnosis of an L-5/S-1 paracentral disk herniation. He was scheduled for surgery with Dr. Heath this past summer, however due to extenuating circumstances, did not have that surgery. Symptoms did improve temporarily. A few days ago his pain worsened. He presented to the Emergency Room for evaluation and treatment. He is currently inpatient for pain control. The patient denies any problems with bowel or bladder control issues. No saddle anesthesia. He does have pain radiating down the posterior left leg to about the level of the ankle. He states that the foot feels numb. No complaints of weakness. PAST MEDICAL HISTORY: The patient's past medical history is significant for: 1. Chronic back pain. 2. Left lower extremity symptoms secondary to a herniated disk, left posterior paracentral L-5/S-1 disk herniation. PAST SURGICAL HISTORY: The patient's past surgical history is significant for a colonoscopy. MEDICATIONS: None. MEDICATION ALLERGIES: None. SOCIAL HISTORY: The patient does use tobacco products and drinks alcohol socially. He does work as a [employer]. REVIEW OF SYSTEMS: The patient denies fevers, chills, nausea, vomiting or diarrhea. He denies chest pain, shortness of breath, lightheadedness, dizziness or headaches. He denies any abdominal pain. No concerns with bladder control. No saddle anesthesia. He does have low back pain radiating into the left lower extremity. PHYSICAL EXAMINATION: GENERAL APPEARANCE: Well-developed, well-nourished male who appears to be in no apparent distress. He is resting comfortably in the exam bed. EXTREMITIES: He has 5/5 strength of the bilateral lower extremities. Sensation in the bilateral lower extremities is intact. No saddle anesthesia. Hahn's is negative. Clonus is negative. Babinski's is absent. His EHL is intact in the bilateral lower extremities. He does have a positive straight leg raise on the left. Deep tendon reflexes at the knee and right ankle are 1+ but absent at the left ankle. Dorsalis pedis pulses are palpable. Capillary refill is brisk. Bilateral lower extremity calves are soft and nontender without evidence of DVT. BACK: He does have some mild tenderness to palpation at the low back. IMAGING DATA: Imaging done on 11/20/2020 CT scan of the lumbar spine was conducted. There is evidence of a fairly large left posterior paracentral disk protrusion at L-5/S-1 with thecal sac compression. This appears to be larger than it was the time of the MRI study from May 09, 2020. IMPRESSION: 1. Low back pain with left lower extremity radiculopathy. 2. Left paracentral disk herniation at L-5, S-1. PLAN: I did discuss this patient with Dr. Erik Heath. Recommendation was for a pain management referral. That referral was entered. We can have the patient follow up in our clinic with Dr. Heath after discharge. All of the patient's questions were answered. He is in agreement with this plan.
[2020-11-22] MEDS: tiZANidine 4 MG TAB PO PRN ×2 (10:12→17:39)
[2020-11-22] MEDS: MORPHINE 4 MG/ML 1ML VIAL/SYRINGE (J2270) IV PRN ×2 (10:12→17:39)
[2020-11-22 14:00] VITALS: BP 145/82
[2020-11-22] MEDS ORDERED: ACETAMINOPHEN TAB 650MG DOSE (2X325MG) PO PRN (15:00)
[2020-11-22 22:00] VITALS: BP 124/64
[2020-11-23] MEDS: KETOROLAC 30 MG/ML 1ML VIAL IV SCH ×4 (02:01→20:12)
[2020-11-23 06:00] VITALS: BP 101/57
[2020-11-23] MEDS: NORCO, ANEXSIA 5/325MG TABLET (HYDROcodone/ACETAMINOPHEN) PO PRN ×2 (06:30→17:53)
[2020-11-23 06:37] LABS: BASO % 0.4 % (0.0-1.0); EOS # 0.1 10^3/uL (0.0-0.5); EOS % 1.5 % (0.0-3.0); HEMATOCRIT 42.3 % (42.0-52.0); HEMOGLOBIN 13.8 g/dl (13.5-17.5); LYMPH # 4.1 10^3/uL (1.5-5.0); LYMPH % 44.6 % (24.0-44.0); MEAN CORPUSCULAR HEMOGLOBIN 28.4 pg (27.0-33.0); MEAN CORPUSCULAR HGB CONC 32.6 g/dl (32.0-36.5); MONO # 0.9 10^3/uL (0.0-0.8); MONO % 10.1 % (0.0-5.0); NEUTROPHILS % 43.1 % (36.0-66.0); PLATELET COUNT, AUTOMATED 311 10^3/uL (150-450); RED BLOOD COUNT 4.86 10^6/uL (4.30-6.10); WHITE BLOOD COUNT 9.2 10^3/uL (4.0-10.0)
[2020-11-23 06:56] LABS: BLOOD UREA NITROGEN 18 MG/DL (7-18); CALCIUM LEVEL 9.3 MG/DL (8.5-10.1); CARBON DIOXIDE LEVEL 27 MEQ/L (21-32); CHLORIDE LEVEL 109 MEQ/L (98-107); CREATININE FOR GFR 0.73 MG/DL (0.70-1.30); GLOMERULAR FILTRATION RATE > 60.0 (>60); GLUCOSE, FASTING 96 MG/DL (70-100); POTASSIUM SERUM 3.8 MEQ/L (3.5-5.1); SODIUM LEVEL 143 MEQ/L (136-145)
[2020-11-23] MEDS: NICOTINE 21MG/24HR 1 EA TRANSDERMAL TD SCH (08:20)
[2020-11-23] MEDS: GABAPENTIN 300 MG CAP PO SCH ×2 (08:21→20:12)
[2020-11-23] MEDS: DICLOFENAC EPOLAMINE 1.3 % PATCH TOP SCH ×2 (08:21→20:13)
[2020-11-23] MEDS: DOCUSATE SODIUM 100MG CAPSULE PO SCH ×2 (08:21→20:12)
[2020-11-23] MEDS: PANTOPRAZOLE 40MG TAB (PROTONIX) PO SCH (08:21)
[2020-11-23] MEDS: dexameTHASONE 4 MG/ML 1ML VIAL (J1100 PER 1MG) IV SCH (08:21)
[2020-11-23] MEDS: MIRALAX *UNIT DOSE* 17GM PACKET PO SCH ×2 (09:00→20:12)
[2020-11-23] MEDS: SENOKOT S TAB PO SCH ×2 (09:00→20:12)
--- NOTE | 2020-11-23 10:08 | IPN ---
PROGRESS NOTE DATE: 11/23/2020 SUBJECTIVE: Elmer is having "11/10" pain, left low back radiating down his left leg. No bowel or bladder dysfunction. He has not had a bowel movement since he has been here. PHYSICAL EXAMINATION: Normal strength in both lower extremities. Low back is tender to palpate. Straight leg raise positive on the left. IMPRESSION: 1. Low back pain: Intractable with herniated disc. Dr. Heath is substance addiction coordinator today and hospitalist commercial loan specialist will see the patient. 2. Constipation: Bowel care has been ordered.
[2020-11-23 14:00] VITALS: BP 141/70
[2020-11-23 20:00] VITALS: BP 134/70
[2020-11-23] MEDS: tiZANidine 4 MG TAB PO PRN (20:20)
[2020-11-24] MEDS: KETOROLAC 30 MG/ML 1ML VIAL IV SCH ×3 (02:14→13:08)
[2020-11-24] MEDS: NORCO, ANEXSIA 5/325MG TABLET (HYDROcodone/ACETAMINOPHEN) PO PRN (04:12)
[2020-11-24 06:00] VITALS: BP 141/83
[2020-11-24 06:32] LABS: BASO % 0.3 % (0.0-1.0); EOS # 0.2 10^3/uL (0.0-0.5); EOS % 1.4 % (0.0-3.0); HEMATOCRIT 42.5 % (42.0-52.0); LYMPH # 4.3 10^3/uL (1.5-5.0); LYMPH % 35.1 % (24.0-44.0); MEAN CORPUSCULAR HEMOGLOBIN 28.5 pg (27.0-33.0); MEAN CORPUSCULAR HGB CONC 32.9 g/dl (32.0-36.5); MEAN CORPUSCULAR VOLUME 86.6 fl (80.0-96.0); MONO # 1.2 10^3/uL (0.0-0.8); MONO % 9.5 % (0.0-5.0); NEUTROPHILS # 6.6 10^3/uL (1.5-8.5); NEUTROPHILS % 53.5 % (36.0-66.0); PLATELET COUNT, AUTOMATED 299 10^3/uL (150-450); RED BLOOD COUNT 4.91 10^6/uL (4.30-6.10); WHITE BLOOD COUNT 12.3 10^3/uL (4.0-10.0)
[2020-11-24 06:54] LABS: BLOOD UREA NITROGEN 19 MG/DL (7-18); CALCIUM LEVEL 8.7 MG/DL (8.5-10.1); CARBON DIOXIDE LEVEL 26 MEQ/L (21-32); CHLORIDE LEVEL 108 MEQ/L (98-107); CREATININE FOR GFR 0.72 MG/DL (0.70-1.30); GLOMERULAR FILTRATION RATE > 60.0 (>60); GLUCOSE, FASTING 92 MG/DL (70-100); MAGNESIUM LEVEL 1.9 MG/DL (1.8-2.4); POTASSIUM SERUM 3.6 MEQ/L (3.5-5.1); SODIUM LEVEL 141 MEQ/L (136-145)
[2020-11-24] MEDS: NICOTINE 21MG/24HR 1 EA TRANSDERMAL TD SCH (08:50)
[2020-11-24] MEDS: MIRALAX *UNIT DOSE* 17GM PACKET PO SCH (08:51)
[2020-11-24] MEDS: GABAPENTIN 300 MG CAP PO SCH (08:51)
[2020-11-24] MEDS: PANTOPRAZOLE 40MG TAB (PROTONIX) PO SCH (08:51)
[2020-11-24] MEDS: DICLOFENAC EPOLAMINE 1.3 % PATCH TOP SCH (08:51)
[2020-11-24] MEDS: SENOKOT S TAB PO SCH (08:51)
[2020-11-24] MEDS: DOCUSATE SODIUM 100MG CAPSULE PO SCH (08:51)
[2020-11-24] MEDS: dexameTHASONE 4 MG/ML 1ML VIAL (J1100 PER 1MG) IV SCH (08:51)
[2020-11-24] MEDS ORDERED: GABA-282 PO (09:48)
--- NOTE | 2020-11-24 12:20 | DSES ---
DISCHARGE SUMMARY DATE OF ADMISSION: 11/22/2020 DATE OF DISCHARGE: / / PRINCIPAL DIAGNOSIS: Intractable low back pain from L5-S1 left paracentral herniated disc. HISTORY: The patient is a 30 year old with a history of chronic low back pain. Had been referred to Dr. Heath at orthopedics in the past. Apparently was noncompliant with follow up. He presented with severe left low back pain radiating into his left leg with a CT scan that showed a large left posterior paracentral disc protrusion at L5-S1 with thecal sac compression confirmed by subsequent MRI scan. HOSPITAL COURSE: He was admitted to a Medical bed, given pain control, and seen by Physical Therapy. Pain Clinic saw him and recommended epidurals which they apparently cannot do in the hospital. It has to be done as an outpatient. Saw Dr. Heath today who recommended the epidurals and then compliance with follow up visit in his office (per nursing staff consult not available to me at this time). PHYSICAL EXAMINATION: On day of discharge, his vitals are stable. Lungs were clear. Heart regular rhythm. Abdomen soft, nontender. Low back was tender to palpate left side. Normal strength and sensation in both lower extremities. Per Physical Therapy, they think he will be stable for discharge using a walker. LABORATORY DATA: Today's labs: Electrolytes unremarkable. Sodium 141, potassium 3.6, BUN 19, creatinine 0.7. White count 12.3, hemoglobin 14, platelets 299. Imaging studies as above. COVID test was negative. DISPOSITION: I am hoping that he will be able to be discharged today if he passes physical therapy. DISCHARGE MEDICATIONS: Will continue the cyclobenzaprine 5 mg t.i.d., Vicodin 10/325 q.4 hours p.r.n. (maximum daily dose four), and ibuprofen as needed. Gabapentin 300 mg b.i.d. has been added to his regimen. FOLLOW UP: He should follow up with his primary care provider in a week, follow up with Pain Clinic per their office, and follow up with Dr. Heath per his office.
== END 2020-11-24 14:41 | disposition home or self-care (01) | DRG 347 ==
LOC: M ED 08:39 → M ED INP 08:40 → M MS5PR 17:03 → OBSVTOIN 11-22 11:05
PROVIDERS: ADMIT Internal Medicine; ATTEND Family Medicine
DX: M51.17 Intervertebral disc disorders with radiculopathy, lumbosacral region (principal); F17.200 Nicotine dependence, unspecified, uncomplicated; K59.00 Constipation, unspecified; Z20.822 Contact with and (suspected) exposure to COVID-19